=== PATIENT | female | born 1970 | race African-American/Black ===

== ENCOUNTER 2018-01-09 12:28 | Inpatient (IN) | payer OTHER ==
[~2018-01-09] VITALS: Ht 160 cm; Wt 92.0 kg
[~2018-01-09 12:28] MED LIST: LEVOXYL0.125 MG PO; LUTEIN20 MG PO; PRILOSEC 20MG20 MG PO; SINEQUAN75 MG PO; ZESTRIL 10MG10 MG PO
[2018-01-09] MEDS ORDERED: ZOFRAN ODT8 MG PO (12:36)
[2018-01-09] MEDS ORDERED: PREMARIN VAG42.5 GM VG (12:37)
[2018-01-09] MEDS ORDERED: OXYCONTIN 10MG10 MG PO (12:37)
[2018-01-09] MEDS ORDERED: AMBIEN 5MG TABLE5 MG PO (12:37)
[2018-01-09] MEDS ORDERED: JARDIANCE10 PO (12:38)
[2018-01-09] MEDS ORDERED: NORCO 325 MG-51 TAB PO (12:38)
[2018-01-09] MEDS ORDERED: DESYREL 50MG50 MG PO (12:39)
[2018-01-09] MEDS ORDERED: NARCAN4 MG NS (12:39)
[2018-01-09] MEDS ORDERED: D-2000 90 MG-201 TAB PO (12:39)
[2018-01-09] MEDS ORDERED: EPA FISH OIL1 SGL PO (12:40)
[2018-01-09] MEDS ORDERED: EFFEXOR 75M75 MG/TAB PO (12:40)
[2018-01-09] MEDS ORDERED: TENORMIN100 MG PO (12:40)
[2018-01-09 13:44] VITALS: BP 124/80; PULSE 58; TEMP 98.2
[2018-01-09] MEDS ORDERED: NORVASC 5MG5 MG/TAB PO (14:12)
[2018-01-09] MEDS ORDERED: LINZESS72 MCG PO (14:13)
[2018-01-09] MEDS ORDERED: NATURAL IRON65 MG PO (14:14)
[2018-01-09] MEDS ORDERED: JANUMET 500 MG-1 TA1 PO (14:18)
[2018-01-09 15:03] VITALS: BP 135/80; PULSE 63; TEMP 98.8
[2018-01-09 20:20] VITALS: BP 111/66; PULSE 83; TEMP 98.2
[2018-01-10] VITALS (9 sets, daily range): BP systolic 107–150; BP diastolic 63–99; PULSE 56–82; TEMP 98.3–99
[2018-01-10 07:04] LABS: BASO % 0.2 % (0.0-2.0); EOS # 0.2 (0.0-0.7); EOS % 1.9 % (0-4.0); GRAN # 7.7 (1.4-6.5); GRAN % 69.2 % (42.2-75.2); HEMOGLOBIN 11.1 g/dl (12.5-16.0); LYMPH # 2.5 (1.2-3.4); LYMPH % 22.4 % (20.0-51.0); MEAN CELL VOLUME 71 fl (80.0-100.0); MEAN CORPUSCULAR HEMOGLOBIN 22 pg (27.0-31.0); MEAN CORPUSCULAR HGB CONC 31 g/dl (33.0-37.0); MEAN PLATELET VOLUME 10.1 fl (7.4-10.4); MONO # 0.7 (0.1-0.6); PLATELET COUNT 328 K/mm3 (130-400); RED BLOOD COUNT 4.95 M/mm3 (4.10-5.30); REDCELL DISTRIBUTION WIDTH-CV 17.9 % (11.5-14.5)
[2018-01-10 07:06] LABS: HEMATOCRIT 35.3 % (37.0-47.0)
[2018-01-10 07:18] LABS: CALCIUM 8.5 mg/dL (8.4-10.2); CREATININE, serum 0.65 mg/dL (0.52-1.25); MAGNESIUM 1.9 mg/dL (1.6-2.3); POTASSIUM 3.1 mmol/L (3.4-5.0)
[2018-01-10 07:26] LABS: TOTAL IRON BINDING CAPACITY 374 ug/dL (265-497)
[2018-01-10 08:06] LABS: IRON,SERUM 45 ug/dL (35-150)
== END 2018-01-10 16:12 | disposition home or self-care (01) | DRG 395 ==
LOC: EDBD 12:28 → MEDICAL 12:28
PROVIDERS: Internal Medicine Gastroenterology; Nurse Practitioner Family
PROC: 0DC68ZZ Extirpation of Matter from Stomach, Via Natural or Artificial Opening Endoscopic (ICD-10-PCS; principal; 2018-01-10 08:30)
DX: T18.2XXA Foreign body in stomach, initial encounter (principal); I10 Essential (primary) hypertension; E11.9 Type 2 diabetes mellitus without complications; E87.6 Hypokalemia; Z98.84 Bariatric surgery status; E11.649 Type 2 diabetes mellitus with hypoglycemia without coma; K21.9 Gastro-esophageal reflux disease without esophagitis; K44.9 Diaphragmatic hernia without obstruction or gangrene
CPT/HCPCS: 99222-AI; 99239; C9113; J1815; J2270; J2405; J2704; J7030; J7042

== ENCOUNTER 2020-08-06 07:31 | Outpatient (CLI) | payer OTHER ==
[~2020-08-06] VITALS: Ht 160 cm; Wt 91.0 kg
[~2020-08-06 07:31] MED LIST changes: +AMBIEN 5MG TABLE5 MG PO; +DESYREL 50MG50 MG PO; +EFFEXOR 75M75 MG/TAB PO; +EPA FISH OIL1 SGL PO; +JANUMXR100-1000 PO; +JARDIANCE10 PO; +LINZESS72 MCG PO; +MASON NATURAL2000 IU PO; +NARCAN4 MG NS; +NATURAL IRON65 MG PO; +NORCO 325 MG-51 TAB PO; +NORVASC 5MG5 MG/TAB PO; +OXYCONTIN 10MG10 MG PO; +PREMARIN VAG42.5 GM VG; +TENORMIN100 MG PO; +ZOFRAN ODT8 MG PO
[2020-08-06 08:32] LABS: MEAN CELL VOLUME 73 fl (80.0-100.0); MEAN CORPUSCULAR HGB CONC 32 g/dl (33.0-37.0); MEAN PLATELET VOLUME 9.4 fl (7.4-10.4); PLATELET COUNT 333 K/mm3 (130-400); RED BLOOD COUNT 4.27 M/mm3 (4.10-5.30); REDCELL DISTRIBUTION WIDTH-CV 17.7 % (11.5-14.5)
[2020-08-06 08:33] LABS: HEMOGLOBIN 9.8 g/dl (12.5-16.0); MEAN CORPUSCULAR HEMOGLOBIN 23 pg (27.0-31.0)
[2020-08-06 08:34] LABS: HEMATOCRIT 31.1 % (37.0-47.0)
[2020-08-06 08:39] LABS: PROTHROMBIN TIME 11.6 SECONDS (9.7-12.8)
[2020-08-06 08:47] LABS: CALCIUM 9.1 mg/dL (8.4-10.2); CREATININE, serum 0.66 (0.52-1.25); POTASSIUM 3.5 mmol/L (3.4-5.0)
[2020-08-06] MEDS ORDERED: EFFEXOR-XR150 MG PO (08:48)
[2020-08-06] MEDS ORDERED: TRULICITY1.5 MG/0.5 SQ (08:49)
[2020-08-06] MEDS ORDERED: MICARDIS20 MG PO (08:50)
[2020-08-06] MEDS ORDERED: ROBAXIN 50500 MG/TAB PO (08:51)
[2020-08-06] MEDS ORDERED: PROTONIX 40MG T40 MG PO (08:52)
[2020-08-06 08:53] VITALS: BP 121/83; PULSE 93; TEMP 98.1
[2020-08-06 09:40] VITALS: BP 105/63; PULSE 92
--- NOTE | 2020-08-06 09:42 | NUR ---
Report from Saad olivier.
[2020-08-06 09:45] VITALS: BP 103/65; PULSE 88
[2020-08-06 10:00] VITALS: BP 100/69; PULSE 85
[2020-08-06 10:15] VITALS: BP 115/71; PULSE 93
--- NOTE | 2020-08-06 10:35 | NUR ---
Discharge instructions given to pt.Pt verbalizes understanding.INT removed,catheter tip intact.Pt escorted out via wheelchair by this nurse.
== END 2020-08-06 10:52 | disposition still patient (30) ==
LOC: COL.RAD → EUO 07:31
PROVIDERS: Internal Medicine Cardiovascular Disease
DX: Q21.1 Atrial septal defect (principal); R94.31 Abnormal electrocardiogram [ECG] [EKG]; Z20.822 Contact with and (suspected) exposure to COVID-19
CPT/HCPCS: J2704; J7030